=== PATIENT | female | born 1955 | race Caucasian/White ===

== ENCOUNTER 2020-07-26 07:35 | Emergency (ER) | payer OTHER ==
[~2020-07-26 07:35] MED LIST: ASPIRIN CHEWABL81 MG PO; DICLOFENAC POTA50 MG PO; DITROPAN5 MG PO; FISH OIL 1,0001 EAC1 PO; IRBESARTAN150 MG PO; LEVOTHYROXINE100 MCG PO; LEXAPRO20 MG PO; PERCOCET 5-3251 EACH PO; PREMARIN0.625 MG PO; PRILOSEC20 MG PO; SIMVASTATIN20 MG PO; SYNTHROID112 MCG PO; VITAMIN D35000 UNIT PO
[2020-07-26] MEDS ORDERED: AUGMENTIN 875-1 EACH PO (08:01)
[2020-07-26] MEDS ORDERED: NORCO 5-325 TA1 EACH PO (08:01)
[2020-09-15] MEDS ORDERED: ULTRAM50 MG PO (14:25)
[2020-09-15] MEDS ORDERED: LOVAZA1 GM PO (14:26)
[2020-09-15] MEDS ORDERED: ASPIRIN EC81 MG PO (14:26)
[2020-09-15] MEDS ORDERED: VITAMIN D31250 MC1 PO (14:26)
[2020-09-15] MEDS ORDERED: PRILOSEC20 MG PO (14:28)
== END 2020-07-26 08:45 | disposition home or self-care (01) ==
LOC: FER 07:35
DX: S61.451A Open bite of right hand, initial encounter (principal); L03.113 Cellulitis of right upper limb; Z91.041 Radiographic dye allergy status; W54.0XXA Bitten by dog, initial encounter; Y92.009 Unspecified place in unspecified non-institutional (private) residence as the place of occurrence of the external cause
CPT/HCPCS: 99283; J0696

== ENCOUNTER 2020-07-28 10:25 | Emergency (ER) | payer OTHER ==
[~2020-07-28 10:25] MED LIST changes: +AUGMENTIN 875-1 EACH PO; +NORCO 5-325 TA1 EACH PO
[2020-07-28] MEDS ORDERED: CLEOCIN300 MG PO (10:52)
[2020-09-15] MEDS ORDERED: ULTRAM50 MG PO (14:25)
[2020-09-15] MEDS ORDERED: VITAMIN D31250 MC1 PO (14:26)
[2020-09-15] MEDS ORDERED: LOVAZA1 GM PO (14:26)
[2020-09-15] MEDS ORDERED: ASPIRIN EC81 MG PO (14:26)
[2020-09-15] MEDS ORDERED: PRILOSEC20 MG PO (14:28)
== END 2020-07-28 10:55 | disposition home or self-care (01) ==
LOC: FER 10:25
DX: S61.452A Open bite of left hand, initial encounter (principal); L03.114 Cellulitis of left upper limb; K21.9 Gastro-esophageal reflux disease without esophagitis; Z79.899 Other long term (current) drug therapy; W54.0XXA Bitten by dog, initial encounter
CPT/HCPCS: 99283

== ENCOUNTER 2020-09-27 07:25 | Emergency (ER) | payer OTHER ==
[~2020-09-27 07:25] MED LIST changes: +ASPIRIN EC81 MG PO; +CLEOCIN300 MG PO; +LOVAZA1 GM PO; +ULTRAM50 MG PO; +VITAMIN D31250 MC1 PO
[2020-09-27] MEDS ORDERED: NORCO 5-325 TA1 EACH PO (08:47)
== END 2020-09-27 09:15 | disposition home or self-care (01) ==
LOC: FER 07:25
DX: M66.0 Rupture of popliteal cyst (principal); Z87.891 Personal history of nicotine dependence
CPT/HCPCS: 73560

== ENCOUNTER → 2020-10-19 | Day surgery (SDC) | payer OTHER ==
[~2020-10-19] VITALS: Ht 162.6 cm; Wt 81.7 kg
== END | disposition home or self-care (01) ==
LOC: FAS 09:21
DX: Z12.11 Encounter for screening for malignant neoplasm of colon (principal); K57.30 Diverticulosis of large intestine without perforation or abscess without bleeding; Z79.899 Other long term (current) drug therapy; Z20.822 Contact with and (suspected) exposure to COVID-19; Z80.0 Family history of malignant neoplasm of digestive organs; Z90.710 Acquired absence of both cervix and uterus; Z96.651 Presence of right artificial knee joint
CPT/HCPCS: J2250; J2704; J7120; U0002

== ENCOUNTER 2021-09-11 07:00 | Emergency (ER) | payer MEDICARE, OTHER ==
[2021-09-11 07:37] LABS: BASOPHIL 1.1 % (0-2); EOSINOPHIL 4.1 % (0-7); HCT 43.4 % (37.0-47.0); HGB 14.1 g/dl (12.5-16.0); LYMPHOCYTE 39.5 % (15-48); MCH 29.8 pg (25.0-31.0); MCHC 32.5 g/dL (32.0-36.0); MCV 91.8 fL (78.0-100.0); MONOCYTE 5.9 % (0-12); MPV 9.8 fL (6.0-9.5); NEUTROPHIL 49.1 % (41-80); NRBC 0; PLT 285 K/uL (150-400); RBC 4.73 M/uL (4.20-5.40); RDW 12.4 % (11.5-14.0); WBC 6.3 K/uL (4.0-10.5)
[2021-09-11 07:48] LABS: ALBUMIN 3.5 g/dL (3.4-5.0); BILIRUBIN - TOTAL 0.5 mg/dL (0.2-1.0); BUN/CREAT RATIO (CALC) 14.9 RATIO; CREATININE 0.67 mg/dL (0.51-0.95); GLOBULIN (CALCULATION) 4.1 g/dL; POTASSIUM 4.4 mmol/L (3.5-5.1); TOTAL PROTEIN 7.6 g/dL (6.4-8.2)
== END 2021-09-11 10:52 | disposition home or self-care (01) ==
LOC: FER 07:00
PROVIDERS: Emergency Medicine
DX: J90 Pleural effusion, not elsewhere classified (principal); R09.1 Pleurisy; Z88.4 Allergy status to anesthetic agent; Z20.822 Contact with and (suspected) exposure to COVID-19
CPT/HCPCS: 36415; 71045; 71275; 80053; 84484; 85025; 85379; 93005; J1885; Q9967; U0002